=== PATIENT | female | born 1990 | race African-American/Black ===

== ENCOUNTER 2025-06-06 01:50 | Emergency (ER) | payer MEDICAID ==
[~2025-06-06] VITALS: Ht 167.6 cm; Wt 81.6 kg
[2025-06-06] MEDS ORDERED: ACETAMINOPHEN 325 MG TAB PO ONE (02:30)
[2025-06-06] MEDS ORDERED: SODIUM CHLORIDE 0.9% 1,000 ML IV ONE (02:30)
== END 2025-06-06 04:41 | disposition home or self-care (01) ==
LOC: ED 01:50
DX: O26.891 Other specified pregnancy related conditions, first trimester (principal); G43.909 Migraine, unspecified, not intractable, without status migrainosus; Z3A.01 Less than 8 weeks gestation of pregnancy